=== PATIENT | female | born 1980 ===

== ENCOUNTER 2025-10-02 07:00 | Day surgery (SDC) | payer OTHER ==
[2025-09-27 09:03] VITALS: BP 130/88
[2025-09-27 09:07] LABS: BASO % 0.5 % (0.1-1.2); EOS # 0.15 (0.04-0.54); EOS % 2.7 % (0.7-7.0); LYMPH # 1.57 (1.18-3.74); LYMPH % 28.4 % (19.3-53.1); MEAN PLATELET VOLUME 12.00 fl (9.4-12.4); MONO # 0.38 (0.24-0.82); MONO % 6.9 % (4.7-12.5); NEUT # 3.38 (1.56-6.13); NEUT % 61.1 % (34.0-71.1); RED CELL DISTRIBUTION WIDTH 12.8 % (11.6-14.4)
[2025-09-27 09:09] LABS: URINE APPEARANCE Clear; URINE BILIRRUBIN Negative (NEGATIVE); URINE COLOR Yellow; URINE GLUCOSE Negative (NEGATIVE); URINE KETONE Negative (NEGATIVE); URINE LEUKOCYTE Trace; URINE NITRATE Negative; URINE PROTEIN Negative (NEGATIVE); URINE UROBILINOGEN 1.0 E.U./dl
[2025-09-27 09:13] LABS: URINE BACTERIA 592.7 uL (0.0-1933); URINE EPITHELIAL CELLS 41.5 uL (0.0-38.8); URINE RBC 20.0 uL (0.0-20.8); URINE WBC 11.6 uL (0.0-23.2)
[2025-09-27 09:19] LABS: URINE CAST 0.14 uL (0.0-1.40)
[2025-09-27 09:20] LABS: URINE BLOOD TRACES
[2025-09-27 09:43] LABS: INR 1.0
[2025-09-27 09:47] LABS: ALT/SGPT 27.0 U/L (12-78); AST/SGOT 13.0 U/L (15-37); BILIRUBIN TOTAL 0.78 mg/dL (0.3-1.2); BUN CREA RATIO 12.0 (7.0-25.0); CREATININE SERUM 0.67 mg/dL (0.55-1.02); GFR 94.34; GLOBULINA 4.1 G/DL (2.4-3.5); GLUCOSE FASTING 96.0 mg/dL (65-100); OSMOLALITY SERUM 276.0 MOSM/KG (275-295)
[~2025-10-02] VITALS: Ht 162.6 cm; Wt 69.9 kg
[~2025-10-02 07:00] MED LIST: LEVOTHYROXINE25 MCG PO
[2025-10-02] MEDS ORDERED: BUPIVACAINE HCL/MPF 0.5% 30ML VIAL ONE (09:02)
[2025-10-02] MEDS ORDERED: LIDOCAINE HCL 1%/EPINEPHRINE 20ML VIAL IJ ONE (09:02)
[2025-10-02] MEDS ORDERED: SUGAMMADEX SODIUM 200 MG/2 ML VIAL IV ONE (10:04)
[2025-10-02] MEDS ORDERED: CEFAZOLIN SODIUM 1,000 MG VIAL ONE (11:48)
[2025-10-02] MEDS ORDERED: CEFAZOLIN SODIUM 1,000 MG VIAL IV SCH (12:00)
== END 2025-10-02 13:00 | disposition home or self-care (01) ==
LOC: CIR.AMB 07:00
PROVIDERS: ATTEND Specialist
DX: K43.2 Incisional hernia without obstruction or gangrene (principal)